=== PATIENT | female | born 1995 | race African-American/Black ===

== ENCOUNTER 2017-11-17 15:36 | Emergency (ER) | payer MEDICAID ==
[~2017-11-17] VITALS: Ht 165.1 cm; Wt 56.0 kg
[2017-11-17 16:29] VITALS: BP 109/75
[2017-11-17] MEDS ORDERED: ONDANSETRON 4MG ODT PO ONE (16:45)
[2017-11-17 17:29] LABS: BASOPHILS % 0.2 % (0.0-2.0); HEMATOCRIT. 37.3 % (36.0-48.0); HEMOGLOBIN. 12.7 g/dL (12.0-16.0); LYMPHOCYTES % 7.1 % (20.0-50.0); MEAN CORPUSCULAR HEMOGLOBIN 26.9 pg (28.0-32.0); MEAN CORPUSCULAR VOLUME 78.7 fL (81.0-99.0); MEAN PLATELET VOLUME 7.6 fl (7.4-10.4); MONOCYTES % 3.9 % (2.0-8.0); NEUTROPHILS % 88.8 % (40.0-76.0); PLATELET 270 x1000/uL (130-400); RED BLOOD CELL COUNT 4.74 mill/uL (4.2-5.4); RED CELL DISTRIBUTION WIDTH 13.2 % (11.6-14.6)
[2017-11-17 17:34] LABS: CHLORIDE 111 mEq/L (98-107)
[2017-11-17 17:35] LABS: INR 1.1; PROTHROMBIN TIME 11.3 sec (9.4-11.6)
== END 2017-11-17 22:19 | disposition left against medical advice (07) ==
LOC: ER 16:44
DX: R11.2 Nausea with vomiting, unspecified (principal); R10.2 Pelvic and perineal pain
CPT/HCPCS: 36415; 80053; 83690; 85025; 85610; 99284; Q0162